=== PATIENT | female | born 1985 | race African-American/Black ===

== ENCOUNTER 2018-11-25 02:25 | Emergency (ER) | payer OTHER ==
[~2018-11-25] VITALS: Ht 161.3 cm; Wt 81.7 kg
[~2018-11-25 02:25] MED LIST: IBUP800T48 PO
[2018-11-25 02:30] VITALS: BP 104/56; PULSE 76; RESP 18; Ht 161.3 cm; Wt 81.7 kg
[2018-11-25] MEDS ORDERED: KETOROLAC 30 MG INJ IV STA (06:20)
[2018-11-25] MEDS ORDERED: ACETAMINOPHEN 500 MG TAB PO STA (07:12)
== END 2018-11-25 07:27 | disposition home or self-care (01) ==
LOC: E/R 02:25 → FTE 07:27
DX: N94.6 Dysmenorrhea, unspecified (principal)
CPT/HCPCS: 81003; 81025; 96374; J1885; Z7502; Z7610